=== PATIENT | male | born 1980 | race Caucasian/White ===

== ENCOUNTER 2024-04-06 19:34 | Inpatient (IN) | payer OTHER ==
[2024-04-06 20:27] VITALS: BMI 19.8
[2024-04-06] MEDS ORDERED: BENZOCAINE/MENTHOL (CHLORASEPTIC ) LOZENGE MM PRN (20:41)
[2024-04-06] MEDS ORDERED: DICYCLOMINE HCL 10 MG CAPSULE PO PRN (20:41)
[2024-04-06] MEDS ORDERED: MAGNESIUM HYDROX 2400MG/30ML ORAL SUSPENSION 30 ML CUP PO PRN (20:41)
[2024-04-06] MEDS ORDERED: LOPERAMIDE HCL 2 MG CAPSULE PO PRN (20:41)
[2024-04-06] MEDS ORDERED: NALOXONE HCL 0.4 MG/ML VIAL IM PRN (20:41)
[2024-04-06] MEDS ORDERED: IBUPROFEN 400 MG TABLET (FP) PO PRN (20:41)
[2024-04-06] MEDS ORDERED: hydrOXYzine PAMOATE 25 MG CAPSULE (FP) PO PRN (20:41)
[2024-04-06] MEDS ORDERED: BISMUTH SUBSALICYLATE 524 MG/30 ML PO PRN (20:41)
[2024-04-06] MEDS ORDERED: NALOXONE (NARCAN) HCL 4 MG/0.1 ML SPRAY NS PRN (20:41)
[2024-04-06] MEDS ORDERED: guaiFENesin 600 MG TABLET.ER (FP) PO PRN (20:41)
[2024-04-06] MEDS ORDERED: BENZONATATE 200 MG CAPSULE PO PRN (20:41)
[2024-04-06] MEDS ORDERED: diazePAM 5 MG TABLET PO PRN (20:49)
[2024-04-06] MEDS ORDERED: chlordiazePOXIDE HCL 25 MG CAPSULE PO PRN (21:05)
[2024-04-06] MEDS ORDERED: methaDONE HCL 10 MG TABLET PO PRN (23:00)
[2024-04-07] MEDS: cloNIDine HCL 0.1 MG TABLET PO SCH (00:20)
[2024-04-07] MEDS ORDERED: methaDONE HCL 10 MG TABLET (FOR DETOX USE ONLY) ONE (00:24)
[2024-04-07] MEDS ORDERED: MELATONIN 5 MG TABLETS ONE (00:26)
[2024-04-07] MEDS ORDERED: chlordiazePOXIDE HCL 25 MG CAPSULE ONE (00:26)
[2024-04-07] MEDS: THIAMINE 100 MG TABLET PO SCH (00:27)
[2024-04-07] MEDS: MELATONIN 5 MG TABLETS PO SCH (00:27)
[2024-04-07] MEDS: methaDONE HCL 10 MG TABLET PO ONE ×2 (00:27→01:29)
[2024-04-07] MEDS: chlordiazePOXIDE HCL 25 MG CAPSULE PO SCH (00:27)
[2024-04-07] MEDS ORDERED: methaDONE HCL 10 MG TABLET PO ONE (10:00)
[2024-04-07] MEDS: methaDONE HCL 40 MG DISPERSABLE TABLET PO ONE (10:14)
[2024-04-07] MEDS: PRENATAL VITAMINS W/ FOLIC ACID TABLET (FP) PO SCH (10:16)
[2024-04-07 14:42] LABS: HEMATOCRIT 35.6 % (35.4-49); HEMOGLOBIN 11.3 GM/dL (11.7-16.9); MCH 24.7 pg (25.7-33.7); MCHC 31.8 g/dl (32.0-35.9); MEAN CELL VOLUME 77.6 fl (80-96); PLATELET COUNT 234 10^3/uL (134-434); RBC 4.58 M/mm3 (4.00-5.60); RDW 16.2 % (11.9-15.9); WHITE BLOOD COUNT 7.9 K/mm3 (4.0-10.0)
[2024-04-07 14:46] LABS: CHLORIDE 106 mmol/L (98-107); POTASSIUM 4.3 mmol/L (3.5-5.1); SODIUM 141 mmol/L (136-145)
[2024-04-07 14:58] LABS: ALBUMIN 2.7 g/dl (3.4-5.0); ANION GAP 6 mmol/L (4-13); BLOOD UREA NITROGEN 16.3 mg/dL (7-18); CALCIUM 8.4 mg/dL (8.5-10.1); CO2 29 mmol/L (21-32); GLUCOSE,RANDOM 77 mg/dL (74-106)
[2024-04-07 15:00] LABS: SGOT/AST 14 U/L (15-37)
[2024-04-07 15:01] LABS: BILIRUBIN,TOTAL 0.4 mg/dL (0.2-1); TOT PROT 6.2 g/dl (6.4-8.2)
[2024-04-07 15:03] LABS: ALK PHOS 123 U/L (45-117); SGPT/ALT 18 U/L (13-61)
[2024-04-08] MEDS ORDERED: cloNIDine HCL 0.1 MG TABLET PO PRN
[2024-04-08] MEDS: chlordiazePOXIDE HCL 25 MG CAPSULE PO SCH (05:24)
[2024-04-08] MEDS ORDERED: methaDONE HCL 10 MG TABLET PO ONE (10:00)
[2024-04-08] MEDS ORDERED: methaDONE HCL 40 MG DISPERSABLE TABLET PO ONE (10:00)
[2024-04-08] MEDS: methaDONE 40 MG, methaDONE 10 MG PO ONE (10:34)
[2024-04-08] MEDS ORDERED: NICOTINE POLACRILEX 2 MG GUM BUC PRN (14:36)
[2024-04-08] MEDS: IBUPROFEN 600 MG TABLET (FP) PO PRN (14:37)
[2024-04-08] MEDS: NICOTINE 14 MG/24 HOURS TOPICAL PATCH TD SCH (14:48)
[2024-04-08] MEDS: hydrOXYzine PAMOATE 25 MG CAPSULE (FP) PO PRN (14:49)
[2024-04-08] MEDS: ONDANSETRON *ODT* 4 MG TABLET SL PRN (15:50)
[2024-04-09] MEDS ORDERED: chlordiazePOXIDE HCL 10 MG CAPSULE PO PRN
[2024-04-09] MEDS: chlordiazePOXIDE HCL 10 MG CAPSULE PO SCH (05:39)
[2024-04-09] MEDS ORDERED: methaDONE HCL 40 MG DISPERSABLE TABLET PO ONE ×2 (10:00)
[2024-04-09] MEDS: methaDONE 40 MG, methaDONE 20 MG PO ONE (10:22)
[2024-04-09] MEDS: METHOCARBAMOL 500 MG TABLET PO PRN (16:52)
[2024-04-09] MEDS: SULFAMETHOXAZOLE/TRIMETHOPRIM 800MG/160MG D.S. TABLET PO SCH (22:03)
[2024-04-09] MEDS: SUVOREXANT 10 MG TABLET PO PRN (22:04)
[2024-04-10] MEDS: chlordiazePOXIDE HCL 10 MG CAPSULE PO SCH (04:59)
[2024-04-10] MEDS: ACETAMINOPHEN 325 MG TABLET (FP) PO PRN (05:00)
[2024-04-10] MEDS: MAG HYDROX/AL HYDROX/SIMETH 30 ML UNIT-DOSE CUP PO PRN (10:00)
[2024-04-10] MEDS ORDERED: methaDONE 40 MG, methaDONE 10 MG PO ONE (10:00)
[2024-04-10] MEDS ORDERED: methaDONE HCL 10 MG TABLET PO ONE (10:42)
[2024-04-10] MEDS: methaDONE 40 MG, methaDONE 30 MG PO ONE (11:01)
[2024-04-10] MEDS: hydrOXYzine PAMOATE 25 MG CAPSULE (FP) PO PRN (23:47)
[2024-04-11] MEDS: chlordiazePOXIDE HCL 10 MG CAPSULE PO ONE (06:21)
[2024-04-11] MEDS ORDERED: methaDONE 40 MG, methaDONE 20 MG PO ONE (10:00)
[2024-04-11] MEDS: methaDONE HCL 40 MG DISPERSABLE TABLET PO ONE (10:30)
[2024-04-11] MEDS: POLYETHYLENE GLYCOL (HEALTHYLAX) 3350 17 GM PACKET PO PRN (11:18)
[2024-04-11 12:52] VITALS: BP 98/53; PULSE 69; RESP 18; TEMP 97.1
== END 2024-04-11 14:32 | disposition other institution (70) | DRG 773 ==
LOC: YASAS 19:34 → Y3N 23:31
PROVIDERS: ADMIT Allergy & Immunology; ATTEND Surgery
PROC: HZ2ZZZZ Detoxification Services for Substance Abuse Treatment (ICD-10-PCS; principal; 2024-04-06)
DX: F11.23 Opioid dependence with withdrawal (principal); F10.230 Alcohol dependence with withdrawal, uncomplicated; F14.20 Cocaine dependence, uncomplicated; F12.20 Cannabis dependence, uncomplicated; F17.210 Nicotine dependence, cigarettes, uncomplicated; F19.24 Other psychoactive substance dependence with psychoactive substance-induced mood disorder; L02.413 Cutaneous abscess of right upper limb
CPT/HCPCS: 36415; 80053; 80305; 80307; 85027; 86780; 87811; 93005; 93010; Q0162

== ENCOUNTER 2024-04-11 14:39 | Inpatient (IN) | payer OTHER ==
[2024-04-11] MEDS ORDERED: NALOXONE HCL 0.4 MG/ML VIAL IVPUSH PRN (15:13)
[2024-04-11] MEDS ORDERED: NICOTINE POLACRILEX 4 MG GUM BUC PRN (15:13)
[2024-04-11] MEDS ORDERED: BENZOCAINE/MENTHOL (CHLORASEPTIC ) LOZENGE MM PRN (15:13)
[2024-04-11] MEDS ORDERED: MAGNESIUM HYDROX 2400MG/30ML ORAL SUSPENSION 30 ML CUP PO PRN (15:13)
[2024-04-11] MEDS ORDERED: guaiFENesin 600 MG TABLET.ER (FP) PO PRN (15:13)
[2024-04-11] MEDS ORDERED: BENZONATATE 200 MG CAPSULE PO PRN (15:13)
[2024-04-11] MEDS ORDERED: NICOTINE POLACRILEX 4 MG LOZENGE BC PRN (15:13)
[2024-04-11] MEDS ORDERED: NALOXONE (NARCAN) HCL 4 MG/0.1 ML SPRAY NS PRN (15:13)
[2024-04-11] MEDS ORDERED: LOPERAMIDE HCL 2 MG CAPSULE PO PRN (15:13)
[2024-04-11] MEDS ORDERED: POLYETHYLENE GLYCOL (HEALTHYLAX) 3350 17 GM PACKET PO PRN (15:13)
[2024-04-11] MEDS ORDERED: IBUPROFEN 400 MG TABLET (FP) PO PRN (15:13)
[2024-04-11] MEDS ORDERED: MAG HYDROX/AL HYDROX/SIMETH 30 ML UNIT-DOSE CUP PO PRN (15:13)
[2024-04-11] MEDS ORDERED: ACETAMINOPHEN 325 MG TABLET (FP) PO PRN (15:13)
[2024-04-11] MEDS: MELATONIN 5 MG TABLETS PO SCH (21:34)
[2024-04-11] MEDS: THIAMINE 100 MG TABLET PO SCH (21:34)
[2024-04-11] MEDS: hydrOXYzine PAMOATE 25 MG CAPSULE (FP) PO PRN (21:36)
[2024-04-12] MEDS: methaDONE HCL 40 MG DISPERSABLE TABLET PO SCH (06:11)
[2024-04-12] MEDS: NICOTINE 21 MG/24 HOURS TOPICAL PATCH TD SCH (09:41)
[2024-04-12] MEDS: PRENATAL VITAMINS W/ FOLIC ACID TABLET (FP) PO SCH (09:41)
[2024-04-12] MEDS ORDERED: hydrOXYzine PAMOATE 50 MG CAPSULE (FP) PO PRN (10:20)
[2024-04-12] MEDS: SUVOREXANT 10 MG TABLET PO PRN (21:09)
[2024-04-13] MEDS: IBUPROFEN 600 MG TABLET (FP) PO PRN (10:09)
[2024-04-13] MEDS: METHOCARBAMOL 500 MG TABLET PO PRN (10:09)
[2024-04-14] MEDS: BACLOFEN 10 MG TABLET (FP) PO SCH (10:56)
[2024-04-14] MEDS: CLINDAMYCIN PHOSPHATE 1% TOPICAL GEL 30 GM TUBE TP SCH (11:30)
[2024-04-14] MEDS: ACAMPROSATE CALCIUM 333 MG TABLET.DR PO SCH (13:34)
[2024-04-14] MEDS: MELATONIN 5 MG TABLETS PO SCH (21:21)
[2024-04-14] MEDS: ONDANSETRON *ODT* 4 MG TABLET SL PRN (21:47)
[2024-04-15] MEDS ORDERED: LACTULOSE 20 GM/30 ML UDC (FOR ORAL USE ONLY) PO PRN (12:53)
[2024-04-15] MEDS ORDERED: LACTULOSE 20 GM/30 ML UDC (FOR ORAL USE ONLY) PO SCH (14:00)
[2024-04-16 07:14] VITALS: BP 94/54; PULSE 68; RESP 17; TEMP 97.4
== END 2024-04-16 11:25 | disposition home or self-care (01) | DRG 772 ==
LOC: YASAS 14:39 → Y3E 14:40
PROVIDERS: ADMIT Psychiatry & Neurology Pain Medicine; ATTEND Psychiatry & Neurology Pain Medicine
PROC: HZ42ZZZ Group Counseling for Substance Abuse Treatment, Cognitive-Behavioral (ICD-10-PCS; principal; 2024-04-11)
DX: F11.20 Opioid dependence, uncomplicated (principal); F10.20 Alcohol dependence, uncomplicated; F14.20 Cocaine dependence, uncomplicated; F17.210 Nicotine dependence, cigarettes, uncomplicated; F19.280 Other psychoactive substance dependence with psychoactive substance-induced anxiety disorder; F19.282 Other psychoactive substance dependence with psychoactive substance-induced sleep disorder; E72.20 Disorder of urea cycle metabolism, unspecified; L02.413 Cutaneous abscess of right upper limb; R60.0 Localized edema
CPT/HCPCS: 82140; J0475; Q0162